=== PATIENT | female | born 1990 | race Caucasian/White ===

== ENCOUNTER 2024-07-15 11:09 | Outpatient (CLI) | payer BC, SELFPAY ==
[2024-07-15 18:44] LABS: Hematocrit 44.4 % (37.0-47.0); Mean Corpuscular HGB Conc 31.5 g/dl (32-36); Mean Corpuscular Hemoglobin 27.6 pg (26-34); Mean Corpuscular Volume 87.6 fl (80-100); Mean Platelet Volume 9.3 fl (7.4-10.4); Platelet Count Result 334 k/mm3 (150-375); Red Blood Count 5.07 M/mm3 (4.2-5.4); Red Cell Distribution Width 13.5 % (11.5-14.5); White Blood Count 7.7 K/mm3 (4.5-10.0)
[2024-07-15 18:55] LABS: Alanine Aminotransferase 37 U/L (6-35); Albumin Level 4.3 g/dL (3.5-5.1); Alkaline Phosphatase 72 U/L (38-126); Anion Gap 9 mmol/L (4-12); Aspartate Amino Transferase 79 U/L (14-36); Bilirubin,Total 0.4 mg/dL (0.2-1.3); Blood Urea Nitrogen 8 mg/dL (7-17); Calcium 9.3 mg/dL (8.4-10.2); Carbon Dioxide 27 mmol/L (22-30); Chloride 101 mmol/L (98-107); Cholesterol 203 mg/dL (0-200); Estimated Glomerular Filt Rate > 60; Glucose 110 mg/dL (65-110); HDL Direct 35 mg/dL; Potassium 4.2 mmol/L (3.4-5.0); Sodium 137 mmol/L (137-145); Triglycerides 179 mg/dL (<150)
[2024-07-15 19:05] LABS: LDL Cholesterol Direct 129 mg/dL
[2024-07-15 20:42] LABS: Hemoglobin A1C 5.7 % (<5.7)
== END 2024-07-15 11:10 | disposition home or self-care (01) ==
LOC: ANHBWCLAB 11:12
PROVIDERS: PCP Nurse Practitioner Adult Health; Visit Provider Nurse Practitioner Adult Health
DX: Z13.9 Encounter for screening, unspecified (principal); E66.9 Obesity, unspecified
CPT/HCPCS: 36415; 80053; 80061; 83036; 84443; 85027

== ENCOUNTER 2025-07-21 09:56 | Outpatient (CLI) | payer BC, SELFPAY ==
--- OUTSIDE RECORDS SUMMARY | 2025-07-21 11:29 | XMS_ITS | Clinical Summary ---
Author Organization [facility] HealthCare Care Team Providers Care Keyseating Machine Set Up Operator Name Role Phone Nora Dean MD Primary Care Provider + Allergies No known active allergies Medications vit D3-vit X-ydwivhvdu-fih s [phone] vpwf-hhn-ua-mg tablet Take by mouth Active lancets 33 gauge miscIndications :Gestational diabetes mellitus (GDM) in second trimester, gestational diabetes method of control unspecified,Sup ervision of high-risk , second trimester CHECK GLUCOSE FASTING AND ONE HOUR AFTER EACH MEAL 120 each 6 3 Active blood glucose diagnostic stripIndication s:Gestational diabetes mellitus (GDM) in second trimester, gestational diabetes method of control unspecified,Sup ervision of high-risk , second trimester Check glucose fasting and one hour after each meal 120 each 6 3 Active aspirin 81 mg enteric coated tablet Take 1 tablet (81 mg total) by mouth daily Active vit 41-zkik-elncw-d devi 27mg iron- 800 mcg-250 mg capsule Take by mouth Active levothyroxine (SYNTHROID) 25 mcg tablet TAKE 1 TABLET BY MOUTH EVERY DAY DIRECTED. REPEAT TSH IN 4 WEEKS 3 Active labetaloL (NORMODYNE,GONZALEZ DATE) 200 mg tablet Take 1 tablet (200 mg total) by mouth every 8 (eight) hours 90 tablet 3 Active docusate sodium (COLACE) 100 mg capsuleIndicati ons:constipatio n,Stool Softener Take 1 capsule (100 mg total) by mouth 2 (two) times a day as needed for constipation 30 capsule 1 3 Active Active Problems Problem Noted Date Diagnosed Date hemorrhage 10/18/2023 Encounter for elective induction of labor 2022 Gestational diabetes mellitus (GDM) in second tr imester 06/12/2023 Overview (10/12/2023): Previously counseled Current regimen: 10/12/2023 Diet controlled Plan: - We will follow weekly glycemic logs remotely. - Serial growth scans q4 weeks- ordered 06/15 - testing (if A2GDM) twice weekly starting at 32 weeks - Delivery at 39 0/7 - 39 6/7 weeks gestation - 2 hour/75g OGTT at visit Assessment & Plan (09/03/2023 2:10 PM CDT): BS log reviewed with excellent control. Continue diet control and weekly review of BS. Assessment & Plan (08/07/2023 12:22 PM CDT): BS log reviewed with excellent control. Continue diet control. Assessment & Plan (07/11/2023 12:38 PM CDT): BS log reviewed with good control. Obesity complicating in second [facility] er 06/12/2023 Overview (07/04/2023): Previously counseled Recommendation: [x] Early GTT [x] Specialized anatomy ultrasound - Serial growth ultrasounds q4 weeks starting at 24 weeks - Weekly testing per cHTN/DM plans Chronic hypertension affecting 023 Overview (10/05/2023): Previously counseled Current regimen: labetalol 200 mg BID ---> increased to 200mg TID on 10/[address] Cazares at [facility] Recommendation: [x] ASA at 12 weeks [x] Baseline labs (CBC, CMP, UPC)- baseline 24 hour urine- 05/21/2023 335 [ ] EKG/Echo (if dx>4 years or >30) [ ] Ophthalmology referral - encouraged weekly BP logs - Serial growth ultrasound starting at 24 weeks - Weekly testing at 32 weeks Patient with baseline 24 hour urine of 335. Discussed with MFJoshua HOYT and plan for close monitoring between now and delivery. Recommend weekly visits with weekly review of home BP log. Recommend a goal BP of <140/90 with medication titration as needed. Reviewed recommendation for hospital evaluation with Bps >150/100. Recommend weekly testing and weekly CBC/CMP between now and delivery. Currently recommend delivery at 38 weeks in the setting of chronic hypertension on medication. PreE symptoms and hospital precautions reviewed. M team happy to help between now and delivery. Assessment & Plan (10/01/2023 3:56 PM HYPERBARIC TECHNICIAN): Home log reviewed with most all Bps <140/90. Currently asymptomatic. Strict hospital precautions reviewed. Assessment & Plan (09/03/2023 3:05 PM CDT): Denies symptoms of preE. BP parameters and precautions reviewed. History of pre-eclampsia in prior , currently in second trimester 06/12/2023 Overview (09/25/2023): Previously counseled Blood pressure log reviewed on 09/25/2023- WNL per Dr. Calderon Recommendation: - Baseline PIH labs: CMP and UPC - Low dose ASA at 12 weeks- started Assessment & Plan (08/07/2023 12:21 PM CDT): Home Bps wnl per patient. Denies symptoms of preE. Precautions reviewed. Polycystic ovaries 07/26/2015 H/O tension headache Hypothyroidism affecting in second tri mester Overview (09/04/2023): Previously counseled Goal between the lower limit of the reference range and 2.5 milliunits/L. Current regimen: levothyroxine 25 mcg Plan TSH Q4-6 weeks until WNL, then qtrimester- records requested, scanned under media 08/30/23: TSH 2.58 Free T4 0.9 Resolved Problems Problem Noted Date Diagnosed Date Resolved Date Excessive growth affec ting management of in third trimester 10/01/2023 10/18/20 Overview (10/01/2023): 10/01/2023 EFW 91%, AC >99% Reviewed her US with LGA growth today. Reviewed importance of tight glycemic control between now and delivery. Reviewed risks of LGA growth including increased risk for C/S delivery, operative delivery and shoulder dystocia and discussed risks of all three. Reviewed increased risk of hemorrhage and hypoglycemia. In vitro fertilization 06/15/202310/18 Overview (10/01/2023): Previously counseled [x] echocardiogram if ICSI- complete and nwl [x] weekly testing as per GDM/HTN Supervision of high-risk pre gnancy, second trimester 06/12/2023 10/18/2023 Overview (10/10/2023): [x] Co-management [x] Blue Team Referring Provider: Cliff Doss [phone] [] or Medicare Insurance [x] Dating Criteria: LMP 01/31/23 with SANIA 11/07/23 [x] Labs: Rh [B+], Ab [negative], Rubella [immune], HIV [non-reactive], HepBSAg [non-reactive], RPR [non-reactive], Hep C [non-reactive], Varicella [negative], GC/CT [negative/negative] [x] Genetic Screening: CF negative [x] CBC/Hgb 13.2/39.9/plt 338 [x] Early 1hr GTT 05/09/23: [175] [x] 3hr glucose 05/21/23: [86,230,191,95] [x] UCx: 04/19/23: 50,000-100,000 CFUL GBS [x] Pap: 04/19/23: NILM; HPV negative [x] LD ASA (if indicated) starting at 12 weeks: [] EPDS [ ]; PNBHS referral (if indicated) 2nd Tri Labs: [x] Anatomy ultrasound: [x] CBC/TSH 24-28wks: completed with primary- will request records but pt states normal [] Flu Shot (Jul-Oct): counseled on risks of maternal and and pt declines [x] Tdap (27-36wks): 10/10/23 @ Primary OB [] RSV- counseled on risks of hospitalization and with RSV and recommendation for RSV vaccine and pt declines 3rd Tri Labs and delivery with primary OB. Currently recommend delivery at 37 weeks in the setting of cHTN on meds with worsening Bps. GBS positive Preeclampsia w/o severe features 04/17/2021 06/12/2023 care following vaginal delivery 04/15/2021 06/12/2023 Overview (04/17/2021): # ID: Afebrile. No signs/symptoms of infection. #COVID-19: Preadmission testing negative # Heme: EBL 400 mL. No symptoms acute blood loss anemia. # CV/Pulm: Pre-eclampsia without severe features - Blood pressures well controlled on no meds, isolated mild range BPs. Asymptomatic, denies DEVI/RUQ pain/vision changes. CBC/CMP wnl , UPC 0.325. Consented for remote BP monitoring. Already received text message. # hypothyroidism: Synthroid 50mcg M///Sat/Sun, 100mcg T/Fr. On this regimen pre-. Continue while inpatient. Does not requires scripts at discharge. # GDMA1: fasting BG PPD#1 74. For follow up as outpatient. # GI/: Tolerating PO. Voiding spontaneously. # Pain: Controlled with above regimen. # Post DVT prophylaxis: The patient has the following MAJOR risk factors BMI >/= 40 and the following MINOR risk factors preeclampsia. enoxaparin 40 mg BID ordered for VTE prophylaxis. # MOC: Declines s/p counseling # MOF: # COVID: Declines vaccination # Disposition: Follow up task not sent. Continue routine care. Elevated BP without diagnosis of hypertension 04/14/20 21 06/12/2023 Overview (04/14/2021): 6/7 - Mild range BP today, normal on recheck. No symptoms of PreE. Has cuff at home and will monitor Bps throughout the day today, instructed to present to L&D if another mild range or develops DEVI, RUQ pain, changes in vision. CBC/CMP/UPC now. Pyelectasis of fetus on ultrasound 01/28/2021 06/12/2023 Overview (04/07/2021): Pyelectasis noted on US 01/27: right kidney 5 mm, left kidney 5.8 mm 02/22: right kidney 8.2mm, left kidney 6.2mm 03/15: right kidney noted normal, left 8 mm 04/07: R12mm, L 10mm - Notify peds at IOL/delivery Diet controlled gestational diabetes mellitus (GDM) in third trimester 01/18/2021 06/12/2023 Overview (04/12/2021): 1HR:183mg/dL 3HR: 89,231,193,152mg/dL Current Regimen 04/12/2021 Diet controlled DM edu appt. Completed 01/27 Counseled on 01/27 on GDM management, goals and risks to fetus Recommendations: - Logs provided, will email us for review q week - Discussed medication options in the event we need to start in the future - Recommend growth US every 4 weeks - If medication is started, will need testing at 32 weeks Assessment & Plan (02/22/2021 2:36 PM CDT): Logs reviewed, pt states she sends them in weekly on Fridays. Fastin-92 1hr PP: 91-143 Continue diet controlled, no indication medication at this time. Supervision of other high ri sk , antepartum 12/22/2020 06/12/2023 Overview (04/08/2021): [x] Full MFM Care; Referring Provider: Cliff Doss (full transfer requested in 3rd trimester for delivery site preference) [x] Dating Criteria: IVF day 5 transfer [x] Labs: Rh [B+], Ab [-], Rubella [IM], HIV [NR], HepBSAg [-], RPR [NR], GC/CT [-/-] [] Genetic Screening: [x] CBC/Hgb 14.3/40.3/342 [x] UCx: not performed [x] Pap: WNL [x] LD ASA (if indicated) starting at 12 weeks: YES [] EPDS [ ]; PNBHS referral (if indicated) 2nd Tri Labs: [x] Anatomy ultrasound: 12/29/20: pyelectasis [x] CBC/1hr gtt at 24-28wks: 12.1/36.1/375> 1HR:183mg/dL> 3HR: 89,231,193,152mg/dL [] Flu Shot (Jul-Oct): [x] Tdap (27-36wks): patient reports she received at other OB [x] Rhogam at 28 wks (if Rh neg):B+ 3rd Tri Labs: [] CBC/HIV/RPR/T&S: 03/29/21: HIV[non-reactive]; RPR[non-reactive]; [x] GBS: 03/29/21: Positive [x] GC/CT (if indicated): 03/29/21: negative/negative [] Covid testing: ordered on 04/07/2021, [place] location, patient aware, letter given Counselling [] MOD: [x] Place of delivery: [facility], IOL scheduled on 04/21/2021, 0800 AM, pt aware and letter given. [x] MOC: declines (IVF ) [x] Method of feeding: breast [] [place] Measure[employer]: [] PP Depression Discussed: PCOS (polycystic ovarian syndrome) 10/18/2023 In vitro fertilization 06/12 Overview (04/13/2021): Day 5 transfer 2nd round IVF, first in 2019 resulted in SAB ~5wk Due to slightly increased risk of congential heart disease among fetus as the result of IVF we recommend echo cardiogram. Opted out. Immunizations Immunization Administration Dates Next Due Tdap 01/12/2017 Varicella 01/31/2017 Surgical History Surgery Date Site/Laterality Comments WISDOM TOOTH EXTRACTION 11/05/2005 - 11/04/2006 2006 Medical History Medical History Date Comments Personal history of other en docrine, nutritional and metabolic disease History of thyroid d isease - Was on synthroid 5 years ago, but is now off medications and has normal TSH (Added by TW Conv) PCOS (polycystic ovarian syndrome) H/O tension headache Obesity Hypothyroidism In vitro fertilization Day 5 tra nsfer 2nd round IVF, first in 2019 resulted in SAB ~5wk Due to slightly increased risk of congential heart disease among fetus as the result of IVF we recommend echo cardiogram. Opted out. Family History Medical History Relation Name Comments Asthma Brother Breast cancer Cousin Alcohol abuse Father Hypertension Father Depression Mother Hyperlipidemia Mother Hypertension Mother Cancer Other 1 Reported Family History Of Cancer - grandparents (Added by [employer] Conv) Hypertension Other 2 Reported Previo us High Blood Pressure - mother (Added by TW Conv) Ovarian cancer Other 3 Ovarian Cance r - aunt (Added by [employer] Conv) Other Other 4 Disorders Of Bl ood And Blood-forming Organs - aunt (Added by TW Conv) Lung disease Other 5 Pulmonary Disea se - grandparents, aunt (Added by [employer] Conv) Obesity Other 6 Obesity - (Adde d by [employer] Conv) Heart disease Other 7 Heart Disease - grandparents, uncle (Added by [employer] Conv) Relation Name Status Comments Brother Cousin Father Mother Other 1 Other 2 Other 3 Other 4 Other 5 Other 6 Other 7 Social History Tobacco Use Types Packs/Day Years Used Date Smoking Tobacco: Never Smokeless Tobacco: Never Tobacco Cessation:Counseling Given: Not Answered Alcohol Use Standard Drinks/Week Comments Not Currently 0 (1 standard drink = 0.6 oz pur e alcohol) Social Connection and Isolation Panel Answer Date Recorded In a typical week, how many times do you talk on the phone with family, friends, or neighbors? More than three times a week 10/17/2023 How often do you get togethe r with friends or relatives? More than three times a week 10/17/2023 How often do you attend chur or taoist services? Patient declined 10/17/2023 Do you belong to any clubs o r organizations such as sikh groups, unions, fraternal or athletic groups, or school groups? Patient declined 10/17/2023 How often do you attend meet ings of the clubs or organizations you belong to? Patient declined 10/17/2023 Are you , , di vorced, , never , or living with a partner? 10/17/2023 AUDIT-C Answer Date Recorded Q1: How often do you have a drink containing alcohol? Never 10/17/2023 Q2: How many drinks containi ng alcohol do you have on a typical day when you are drinking? Patient does not drink Q3: How often do you have si x or more drinks on one occasion? Never 10/17/2023 Overall Financial Resource Strain (CARDIA) Answe r Date Recorded How hard is it for you to pa y for the very basics like food, housing, medical care, and heating? Not hard at all 10/17/2023 PHQ-2 Answer Date Recorded PHQ-2 Total Score (If total score is 3 or more points, staff should administer the PHQ-9) 0 10/17/2023 [facility] - Occupational Stress Questionnaire Answer Date Recorded Do you feel stress - tense, restless, nervous, or anxious, or unable to sleep at night because your mind is troubled all the time - these days? Not at all 10/17/2023 Exercise Vital Sign Answer Date Recorde d On average, how many days pe r week do you engage in moderate to strenuous exercise (like a brisk walk)? 0 days 10/17/2023 On average, how many minutes do you engage in exercise at this level? 0 min 10/17/2023 Hunger Vital Sign Answer Date Recorded Within the past 12 months, y ou worried that your food would run out before you got the money to buy more. Never true 10/17/20 23 Within the past 12 months, t he food you bought just didn't last and you didn't have money to get more. Never true 10/17/2023 PRAPARE - Transportation Answer Date Re corded In the past 12 months, has l ack of transportation kept you from medical appointments or from getting medications? No 10/05 In the past 12 months, has l ack of transportation kept you from meetings, work, or from getting things needed for daily living? No 10/17/2023 Housing Stability Vital Sign Answer Doroteo e Recorded In the last 12 months, was t here a time when you were not able to pay the mortgage or rent on time? No 10/17/2023 In the last 12 months, how many places have you lived? 1 10/17/2023 In the last 12 months, was t here a time when you did not have a steady place to sleep or slept in a snf (including now)? No 10/17/2023 Personal Safety Answer Date Recorded Have you ever been in or are you currently in a harmful physical or emotional relationship or is someone making you feel afraid or unsafe? Denies 10/17/2023 Comments No Sex and Gender Information Value Date Recorded Sex Assigned at Not on file Legal Sex Female 5:52 AM HYPERBARIC TECHNICIAN Gender Identity Female 12/22/2020 8:00 AM HYPERBARIC TECHNICIAN Sexual Orientation Not on file Obstetrics History Para Term AB IAB SAB Ectopic Multiple Livin g Live Births 3 2 2 1 1 0 2 2 Date Outcome GA Total Labor Labor/2nd/3rd Weight Sex Type Anes PTL Kayla A1 A5 Name Clin 2019 SAB 5w0 d 2020 Term 38w 1d 13h 44m 12h 08m/1h 29m/0h 07m 3.51 kg (7 lb 11.8 oz) M Vag-Sp ont Epidur al N Livin g 8 9 GARVI NPRIETO , Franny rai MD Complications:Pre eclampsia Delivery Location:[facility] ([facility]LD) 2022 Term 37w 1d 9h 27m 9h 09m/0h 08m/0h 10m 3.749 kg (8 lb 4.2 oz) F Vagina l Epidur al,Loc al N Livin g 8 9 Katherine nn Garvi n Hardm an, Cliff hoffman MD Complications:None Delivery Location:[facility] ([facility] Last Filed Vital Signs Vital Sign Reading Time Taken Comments Blood Pressure 146/91 10/20/2023 11:00 AM HYPERBARIC TECHNICIAN Pulse 77 10/20/2023 11:00 AM HYPERBARIC TECHNICIAN Temperature 36.5 C (97.7 F) 10/19/2023 11:16 PM HYPERBARIC TECHNICIAN Respiratory Rate 18 10/19/2023 11:16 PM HYPERBARIC TECHNICIAN Oxygen Saturation 100% 10/19/2023 11:45 AM HYPERBARIC TECHNICIAN Inhaled Oxygen Concentration - - Weight 136.1 kg (300 lb) 10/17/2023 6:51 AM HYPERBARIC TECHNICIAN Height 170.2 cm (5' 7) 10/17/2023 6:51 AM HYPERBARIC TECHNICIAN Body Mass Index 46.99 10/17/2023 6:51 AM HYPERBARIC TECHNICIAN Plan of Treatment Health Maintenance Due Date Last Done Comments Albumin Creatinine Ratio, Urine 1990 Cervical Cancer Screening 1990 Hemoglobin A1C 1990 Dilated Eye Exam 1990 Foot Exam 1990 Lipid Panel 1990 Hepatitis B Screening 02/28/2008 Regular Well Visit/Exam 18-64 02/28/2008 Pneumococcal vaccine <65 (1 of 2 - PCV) 2009 HPV Vaccines (1 - 3-dose SCD M series) 2017 Varicella Vaccines (2 of 2 - 13+ 2-dose series) 02/28/2017 01/31/2017 eGFR 10/08/2024 10/08/2023, 09/06, 09/26/2023, Additional history exists Depression Screening 10/12/2024 10/12/2023, 09/26/2023, 09/26/2023, Additional history exists Influenza Vaccine (#1) 2025 DTaP/Tdap/Td Vaccine (4 - Td or Tdap) 08/14/2033 08/14/2023, 02/08/2021, 01/12/2017 Hepatitis C Screening Completed 04/19/2023 Procedures Procedure Name Priority Date/Time Associated Diagnosis Comments EGFR STAT 10/08/2023 11:24 AM HYPERBARIC TECHNICIAN HEPATITIS C ANTIBODY Routine 04/19/2023 from Last 3 Months or Most Recently Relevant to Health Maintenance Results * eGFR (10/08/2023 11:24 AM HYPERBARIC TECHNICIAN) eGFR 122 mL/min/1. 73 m2 THU ZULETA (CHARLENE) Comment: Interpretive Data Reference Interval Normal >/= 90 mL/min/1.73m2 Mildly decreased* 60 - 89 mL/min/1.73m2 Mildly to moderately decreased 45 - 59 mL/min/1.73m2 Moderately to severely decreased 30 - 44 mL/min/1.73m2 Severely decreased 15 - 29 mL/min/1.73m2 Kidney Failure < 15 mL/min/1.73m2 *Relative to young adult level Estimated glomerular filtration rate is determined by the 2020 CKD-EPI equation recommended by the National Kidney Foundation (A Unifying Approach to GFR Estimation: Recommendations of the NKF-ASK Task Force on Reassessing the Inclusion of Race in Diagnosing Kidney Disease, JASN 2020). The CKD-EPI equation should not be used for patients with unstable renal function and has not been validated in children and those over 70. Current interpretive data was last reviewed 2021. Blood 10/08/2023 11:2 4 AM HYPERBARIC TECHNICIAN 10/08/2023 11:28 AM HYPERBARIC TECHNICIAN us Dani Cazares MD LAB BLOOD ORDERABLES F inal Result [facility] ([facility]) [facility] Department [place] [address] * Hepatitis C antibody (04/19/2023) SCRIBED HCV ab non-reacti ve Blood Cliff Doss MD LAB MICROBIOLOGY - GEN ERAL ORDERABLES Final Result from Last 3 Months or Most Recently Relevant to Health Maintenance Insurance [employer] OOS ANTH ACCESS CHOICE ANTHEM ACCESS CHOICE ANTHEM ACCESS CHOICE Advance Directives For more information, please contact: [phone] * Full Code (Latest Code Status on File) Date Activated Date Inactivated Comments 10/18/2023 4:54 AM 10/20/2023 4:45 PM * Full Code Date Activated Date Inactivated Comments 10/17/2023 6:13 AM 10/18/2023 4:54 AM Full CPR i n case of cardiopulmonary arrest * Full Code Date Activated Date Inactivated Comments 04/15/2021 11:08 AM 04/17/2021 9:22 PM * Full Code Date Activated Date Inactivated Comments 04/14/2021 7:08 PM 04/15/2021 11:07 AM Full CPR in case of cardiopulmonary arrest Care Teams Keyseating Machine Set Up Operator Relationship Specialty Start Date End Date Nora Dean MD PCP - General Family Medicine 01/04/23
[2025-07-21 19:32] LABS: Hemoglobin A1C 5.6 % (<5.7)
[2025-07-21 19:45] LABS: Hematocrit 42.2 % (37.0-47.0); Hemoglobin 12.4 g/dL (12.0-15.0); Mean Corpuscular HGB Conc 29.4 g/dl (32-36); Mean Corpuscular Hemoglobin 24.7 pg (26-34); Mean Corpuscular Volume 84.1 fl (80-100); Platelet Count Result 337 k/mm3 (150-375); Red Blood Count 5.02 M/mm3 (4.2-5.4); White Blood Count 6.8 K/mm3 (4.5-10.0)
[2025-07-21 19:46] LABS: Alanine Aminotransferase 32 U/L (6-35); Albumin Level 4.2 g/dL (3.5-5.1); Alkaline Phosphatase 66 U/L (38-126); Anion Gap 6 mmol/L (4-12); Aspartate Amino Transferase 54 U/L (14-36); Bilirubin,Total 0.5 mg/dL (0.2-1.3); Blood Urea Nitrogen 12 mg/dL (7-17); Calcium 9.2 mg/dL (8.4-10.2); Carbon Dioxide 28 mmol/L (22-30); Chloride 103 mmol/L (98-107); Cholesterol 176 mg/dL (0-200); Estimated Glomerular Filt Rate > 60; Glucose 88 mg/dL (65-110); HDL Direct 30 mg/dL; Potassium 4.5 mmol/L (3.4-5.0); Sodium 137 mmol/L (137-145); Total Protein 7.6 g/dL (6.3-8.2); Triglycerides 139 mg/dL (<150)
[2025-07-21 20:11] LABS: Free T4 Free Thyroxine 1.09 ng/dL (0.78-2.19)
[2025-07-21 20:18] LABS: Thyroid Stimulating Hormone 1.860 uIU/mL (0.465-4.680)
== END 2025-07-21 09:57 | disposition home or self-care (01) ==
LOC: ANHBWCLAB 09:59
PROVIDERS: PCP Nurse Practitioner Adult Health; Visit Provider Nurse Practitioner Adult Health
DX: Z00.00 Encounter for general adult medical examination without abnormal findings (principal)
CPT/HCPCS: 36415; 80053; 80061; 83036; 84439; 84443; 85027

== ENCOUNTER 2025-07-22 13:05 | Outpatient (CLI) | payer BC, SELFPAY ==
--- OUTSIDE RECORDS SUMMARY | 2025-07-22 13:12 | XMS_ITS | Clinical Summary ---
Author Organization [facility] HealthCare Care Team Providers Care Long Distance Operator Name Role Phone Nora Dean MD Primary Care Provider + Allergies No known active allergies Medications vit D3-vit J-hvpbipefw-bee s [phone] sgny-xjw-xn-mg tablet Take by mouth Active lancets 33 [...] mg total) by mouth daily Active vit 61-pemm-bajmg-d devi 27mg iron- 800 mcg-250 mg capsule [...] with good control. Obesity complicating in second [facility] er 06/12/2023 Overview (07/04/2023): Previously counseled Recommendation: [x] Early GTT [x] Specialized anatomy ultrasound - Serial growth ultrasounds q4 weeks starting at 24 weeks - Weekly testing per cHTN/DM plans Chronic hypertension affecting 023 Overview (10/05/2023): Previously counseled Current regimen: labetalol 200 mg BID ---> increased to 200mg TID on 10/[address] Cazares at [facility] Recommendation: [x] ASA at 12 weeks [...] delivery. Assessment & Plan (10/01/2023 3:56 PM COMMERCIAL DEVELOPMENT MANAGER): Home log reviewed with most all Bps [...] [x] Blue Team Referring Provider: Cliff Doss [phone] [] or Medicare Insurance [x] Dating Criteria: [...] negative/negative [] Covid testing: ordered on 04/07/2021, [place] location, patient aware, letter given Counselling [] MOD: [x] Place of delivery: [facility], [facility] scheduled on 04/21/2021, 0800 AM, pt aware and letter given. [x] MOC: declines (IVF ) [x] Method of feeding: breast [] [place] Drawer: [] PP Depression Discussed: PCOS (polycystic ovarian [...] History Of Cancer - grandparents (Added by [employer] Conv) Hypertension Other 2 Reported Previo us High Blood Pressure - mother (Added by TW Conv) Ovarian cancer Other 3 Ovarian Cance r - aunt (Added by [employer] Conv) Other Other 4 Disorders Of Bl ood And Blood-forming Organs - aunt (Added by TW Conv) Lung disease Other 5 Pulmonary Disea se - grandparents, aunt (Added by [employer] Conv) Obesity Other 6 Obesity - (Adde d by [employer] Conv) Heart disease Other 7 Heart Disease - grandparents, uncle (Added by [employer] Conv) Relation Name Status Comments Brother Cousin [...] How often do you attend chur or mandaen services? Patient declined 10/17/2023 Do you belong to any clubs o r organizations such as taoism groups, unions, fraternal or athletic groups, or [...] staff should administer the PHQ-9) 0 10/17/2023 [facility] - Occupational Stress Questionnaire Answer Date Recorded [...] place to sleep or slept in a jail (including now)? No 10/17/2023 Personal Safety Answer Date Recorded Have you ever been in or are you currently in a harmful physical or emotional relationship or is someone making you feel afraid or unsafe? Denies 10/17/2023 Comments No Sex and Gender Information Value Date Recorded Sex Assigned at Not on file Legal Sex Female 5:52 AM COMMERCIAL DEVELOPMENT MANAGER Gender Identity Female 12/22/2020 8:00 AM COMMERCIAL DEVELOPMENT MANAGER Sexual Orientation Not on file Obstetrics History [...] , Franny rai MD Complications:Pre eclampsia Delivery Location:[facility] Main [facility] ([facility] 58LD) 2022 Term 37w 1d 9h 27m 9h 09m/0h 08m/0h 10m 3.749 kg (8 lb 4.2 oz) F Vagina l Epidur al,Loc al N Liv[place] g 8 9 Katherine nn Garvi n Hardm an, Cliff hoffman MD Complications:None Delivery Location:[facility] ([facility]) Last Filed Vital Signs Vital Sign Reading Time Taken Comments Blood Pressure 146/91 10/20/2023 11:00 AM COMMERCIAL DEVELOPMENT MANAGER Pulse 77 10/20/2023 11:00 AM COMMERCIAL DEVELOPMENT MANAGER Temperature 36.5 C (97.7 F) 10/19/2023 11:16 PM COMMERCIAL DEVELOPMENT MANAGER Respiratory Rate 18 10/19/2023 11:16 PM COMMERCIAL DEVELOPMENT MANAGER Oxygen Saturation 100% 10/19/2023 11:45 AM COMMERCIAL DEVELOPMENT MANAGER Inhaled Oxygen Concentration - - Weight 136.1 kg (300 lb) 10/17/2023 6:51 AM COMMERCIAL DEVELOPMENT MANAGER Height 170.2 cm (5' 7) 10/17/2023 6:51 AM COMMERCIAL DEVELOPMENT MANAGER Body Mass Index 46.99 10/17/2023 6:51 AM COMMERCIAL DEVELOPMENT MANAGER Plan of Treatment Health Maintenance Due Date [...] Diagnosis Comments EGFR STAT 10/08/2023 11:24 AM COMMERCIAL DEVELOPMENT MANAGER HEPATITIS C ANTIBODY Routine 04/19/2023 from Last 3 Months or Most Recently Relevant to Health Maintenance Results * eGFR (10/08/2023 11:24 AM COMMERCIAL DEVELOPMENT MANAGER) eGFR 122 mL/min/1. 73 m2 THU ZULETA [...] reviewed 2021. Blood 10/08/2023 11:2 4 AM COMMERCIAL DEVELOPMENT MANAGER 10/08/2023 11:28 AM COMMERCIAL DEVELOPMENT MANAGER us Dani Cazares MD LAB BLOOD ORDERABLES F inal Result [facility] ([place]) [facility] Department [place] [address] * Hepatitis C antibody (04/19/2023) SCRIBED HCV ab non-reacti ve Blood Cliff Doss MD LAB MICROBIOLOGY - GEN ERAL ORDERABLES Final Result from Last 3 Months or Most Recently Relevant to Health Maintenance Insurance [facility] CHOICE OOS ANTH ACCESS CHOICE ANTHEM ACCESS CHOICE ANTHEM ACCESS CHOICE Advance Directives For more information, please contact: [phone] * Full Code (Latest Code Status on [...] in case of cardiopulmonary arrest Care Teams Long Distance Operator Relationship Specialty Start Date End Date Nora Dean MD PCP - General Family Medicine 01/04/23
[2025-07-22 18:40] LABS: Iron 37 ug/dL (37-170)
[2025-07-22 18:52] LABS: Percent Iron Saturation 9 % (20-50)
[2025-07-22 19:16] LABS: Ferritin 14.90 ng/mL (6.24-137)
== END 2025-07-22 13:06 | disposition home or self-care (01) ==
LOC: ANHBWCLAB 13:06
PROVIDERS: PCP Nurse Practitioner Adult Health; Visit Provider Nurse Practitioner Adult Health
DX: D64.9 Anemia, unspecified (principal)
CPT/HCPCS: 36415; 82728; 83540; 83550